=== PATIENT | male | born 1980 | race Caucasian/White ===

== ENCOUNTER 2017-09-04 02:13 | Emergency (ER) | payer SELFPAY ==
[2017-09-04 02:20] VITALS: BP 159/101; PULSE 115; RESP 18; TEMP 36.8; O2SAT 96; BMI 27.8
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
[2017-09-04 04:29] VITALS: BP 126/65; PULSE 84; RESP 18; TEMP 36.3; O2SAT 98
== END 2017-09-04 04:29 ==
PROVIDERS: Emergency Provider Emergency Medicine
DX: V89.2XXA Person injured in unspecified motor-vehicle accident, traffic, initial encounter (principal); Z00.8 Encounter for other general examination
CPT/HCPCS: 70450; 71045; 72125; 72170; 99283

== ENCOUNTER 2020-07-28 09:34 | Emergency (ER) | payer OTHER, SELFPAY ==
[2020-07-28 09:34] VITALS: BP 160/109; PULSE 85; RESP 16; TEMP 36.6; O2SAT 98; BMI 28.5
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
--- NOTE | 2020-07-28 09:50 | XR_ITS ---
PROCEDURE: XR HAND RT MIN 3V CLINICAL INDICATION: INJURY Posttraumatic pain COMPARISON: No exams were available for comparison FINDINGS: No fracture or dislocation. No lytic or blastic change. There is normal mineralization. There is a displaced longitudinal fracture involving the mid distal aspect of the 5th metacarpal. The distal aspect of the fracture does extend into the articular surface the metacarpal head along the ulnar aspect. The distal fracture fragment is displaced medially by approximately 5 mm. In addition there appears to be a nondisplaced fracture involving the waist of the scaphoid. Wrist films may confirm. IMPRESSION: 1. Mildly displaced fracture 5th metacarpal as described above. 2. Nondisplaced fracture waist of the scaphoid Dictated by: Amol Ram MD 07/28/2020 11:05 Amol Ram MD in [place] 07/28/2020 11:05
--- NOTE | 2020-07-28 11:32 | XR_ITS ---
PROCEDURE: XR WRIST RT MIN 3V CLINICAL INDICATION: wrist pain possible scaphoid fx COMPARISON: CR XR HAND RT MIN 3V from 07/28/2020 FINDINGS: There is a lucency at the waist of the scaphoid along with some sclerosis at this area suggesting an old scaphoid fracture. Please correlate as the patient's area of pain and tenderness. Mild displaced fracture involves the 5th metacarpal. Other findings:None. IMPRESSION: Lucency is present at the neck of the scaphoid consistent with a fracture possibly old. Please correlate with patient's area of pain and tenderness. Displaced 5th metacarpal fracture Dictated by: Amol Ram MD 07/28/2020 12:45 Amol Ram MD in [facility] 07/28/2020 12:45
--- NOTE | 2020-07-28 11:45 | PC.NURSE ---
RAD NOTIFIED OF XRAY
--- NOTE | 2020-07-28 12:52 | CT_ITS ---
PROCEDURE: CT WRIST RT WO CON CLINICAL HISTORY: PAIN Evaluate scaphoid fracture COMPARISON: No exams were available for comparison TECHNIQUE: Axial images obtained with sagittal and coronal reformats. All CT scans at the facility use one or more dose reduction, viz: automated exposure control, ma/kV adjustment per patient size (including targeted exams where dose is matched to indication, i.e. head), or iterative reconstruction technique. FINDINGS: There is a well-circumscribed fracture through the waist of the scaphoid with sclerotic margins consistent with an old fracture. There is mild anterior displacement of the distal fracture fragment by approximately 3-4 mm. No evidence of avascular necrosis. There is some fragmentation at the fracture site which appears chronic. Displaced fracture involves the 5th metacarpal. The distal fracture fragment is displaced laterally by 5 mm. There is mild prominence of the scapholunate space which may indicate ligamentous injury. IMPRESSION: 1. Old scaphoid fracture. 2. Acute displaced fracture of the 5th metacarpal. 3. Prominence of the scapholunate space which may be seen with ligamentous injury. Dictated by: Amol Ram MD 07/28/2020 14:06 Amol Ram MD in [facility] 07/28/2020 14:06
--- NOTE | 2020-07-28 14:15 | PC.NURSE ---
ULNAR GUTTER SPLINT APPLIED TO RT HAND
[2020-07-28 14:49] VITALS: BP 125/74; PULSE 78; RESP 18; TEMP 36.6; O2SAT 98
== END 2020-07-28 14:51 | disposition home or self-care (01) ==
PROVIDERS: Emergency Provider Emergency Medicine
DX: S62.306A Unspecified fracture of fifth metacarpal bone, right hand, initial encounter for closed fracture (principal); W01.0XXA Fall on same level from slipping, tripping and stumbling without subsequent striking against object, initial encounter; Y92.019 Unspecified place in single-family (private) house as the place of occurrence of the external cause
CPT/HCPCS: 29125; 73110; 73130; 73200; 99283

== ENCOUNTER → 2020-08-01 09:44 | Outpatient (CLI) | payer OTHER, SELFPAY ==
[2020-08-01 10:13] LABS: Basophils # 0.1 K/mm3 (0-0.2); Eosinophils # 0.3 K/mm3 (0.0-0.4); Eosinophils % 3.9 % (0.1-12.0); Hematocrit 49.8 % (42.0-52.0); Hemoglobin 16.9 g/dL (14.1-18.0); Lymphocytes % 31.9 % (10-50); Mean Corpuscular HGB Conc 33.9 g/dL (31.8-35.4); Mean Corpuscular Hemoglobin 29.6 pg (27.0-31.2); Mean Corpuscular Volume 87.4 fl (80-94); Mean Platelet Volume 6.9 fl (7.4-10.4); Monocytes # 0.4 K/mm3 (0.1-1.0); Monocytes % 5.9 % (1.7-9.3); Neutrophils # 3.7 K/mm3 (1.8-7.8); Neutrophils % 57.3 % (37.0-80.0); Platelet Count 248 K/mm3 (142-424); Red Cell Distribution Width 13.5 % (11.5-17.5); White Blood Count 6.4 K/mm3 (4.8-10.8)
[2020-08-01 11:54] LABS: Chloride 102 mmol/L (98-107); Potassium 4.4 mmoL/L (3.5-5.1); Sodium 137 mmol/L (136-145)
[2020-08-01 11:56] LABS: Alanine Aminotransferase 49 U/L (12-78); Aspartate Amino Transferase 47 U/L (17-59); Blood Urea Nitrogen 15 mg/dl (9-20); Estimated Glomerular Filt Rate 125 ml/min (>60); GFR (African American) 151 ML/MIN (>60)
[2020-08-01 11:57] LABS: Albumin Level 4.9 g/dl (3.5-5.0); Albumin/Globulin Ratio 1.8 (1.1-1.8); Alkaline Phosphatase 70 U/L (38-126); Anion Gap 12.4 mEq/L (5-15); Bilirubin,Total 0.6 mg/dl (0.2-1.3); Carbon Dioxide 27 mmol/L (22.0-30.0); Globulin 2.8 g/dL (1.3-3.2); Glucose 98 mg/dl (74-100); Total Protein,Serum 7.7 g/dl (6.3-8.2)
[2020-08-01 12:16] LABS: Coronavirus 19 IgG Antibody Negative (Negative); Coronavirus 19 IgM Antibody Negative (Negative)
== END ==
PROVIDERS: Visit Provider Orthopaedic Surgery
DX: Z01.812 Encounter for preprocedural laboratory examination (principal); Z11.52 Encounter for screening for COVID-19; S62.306A Unspecified fracture of fifth metacarpal bone, right hand, initial encounter for closed fracture; S62.021K Displaced fracture of middle third of navicular [scaphoid] bone of right wrist, subsequent encounter for fracture with nonunion
CPT/HCPCS: 36415; 80053; 85025; 86328

== ENCOUNTER 2020-08-03 07:13 | Day surgery (SDC) | payer OTHER, SELFPAY ==
[2020-07-31 14:15] VITALS: BMI 28.5
[2020-08-03] VITALS (21 sets, daily range): BP systolic 131–165; BP diastolic 75–121; PULSE 50–91; RESP 13–24; TEMP 36.2–36.6; O2SAT 89–98
--- NOTE | 2020-08-03 11:08 | XR_ITS ---
PROCEDURE: XR HAND RT 2V CLINICAL INDICATION: ORIF R Hand COMPARISON: CR XR HAND RT MIN 3V from 07/28/2020 FINDINGS: Fluoro time: 44 seconds. Multiple images are submitted during ORIF of the 5th metacarpal fracture with final images showing good alignment with [address] IMPRESSION: Good alignment status post ORIF 5th metacarpal fracture Dictated by: Amol Ram MD 08/03/2020 17:46 Amol Ram MD in [place] 08/03/2020 17:46
--- NOTE | 2020-08-03 11:26 | P.PN_ITS ---
[facility] Anesthesia Checklist - Patient Identification Patient Identification: Arm Band, Verbal (Name & ) - Structural Data Admitted From: Home Planned Operative Procedure/s: orif hand Consent for Planned Operative Procedure(s) Verified: Yes Verified Documents: History and Physical - NPO Status Verified Time NPO: 00:00 - Chart Verification Results Verified: CBC, BMP - Additional verifications Patient : No Anesthesia Reactions: No Hx Blood Transfusions: No Blood Transfusion Reaction: No Cephalosporin Allergy: No Previous Colonoscopy: No - Cardiovascular Assessment Heart Sounds: S1 & S2 Pulse Strength: Baseline Pulse Rhythm: Regular Peripheral Edema: No - Airway Assessment C-Spine Mobility Assessed: Yes TMJ Mobility Assessed: Yes Dentition: Good Dentition - Neurological Assessment Level of Consciousness: Awake, Alert, Appropriate Hx Seizures: No Numbness or tingling in extremities: No - Anesthesia Plan Anesthesia Risk discussed: Yes Anesthesia Plan: Verified ASA Class: I Anesthesia Type: General w/block [facility] History I have reviewed the patient's past medical history: Yes Medical History: Denies:: Cancer, Diabetes Mellitus Type 1, Diabetes Mellitus Type 2, Internal Pacemaker, MRSA, Seizures *Have you ever received a pneumonia vaccine?: No *Have you received a flu vaccine this season?: No Other Medical History: Denies: Blood Transfusion Reaction Anesthesia experience/problems:: none Laterality Cases: Left: Other Other Surgeries: No: Pacemaker Amputation: No Fractures: No - *Social History Last grade of school completed: Some college Smoking Status: Never smoker Alcohol Intake: current Alcohol Intake Frequency:: a few times a week Substance Use Type: marijuana *Occupational Status:: employed Housing: house Household Members: significant other, children *Travel in the last 8 weeks: None Family Hx:: Cancer, Diabetes
--- NOTE | 2020-08-03 11:27 | P.PN_ITS ---
[facility] Anesthesia Record Part I Intake, IV Amount: 1,150 Estimated blood loss (mL): 2 Urine output (mL): 0 Blood Products used (#): none Blood Pressure: 148/85 SaO2: 96 Pulse Rate: 86 Respiratory Rate: 20 Temperature: 97.9 F Patient is:: Awake, Stable Stable to PACU at:: 11:20
--- NOTE | 2020-08-03 12:45 | HMH.ANESII ---
[facility] Anesthesia Record Part II Discharge Time: 11:50 Destination: Surgical Day Care (OP Surgery) PACU nurse assessment reviewed?: Yes Patient Condition:: Good Anesthesia Complications:: None Swallowing reflex intact?: Yes Cyanosis?: No Blood Pressure: 150/85 Pulse Rate: 58 Temperature: 97.2 F Mental Status: Alert & Oriented Pain level:: 6 Nausea and/or vomitting:: None Intake, IV Amount: 30
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
--- NOTE | 2020-08-03 14:43 | SUR.PHASEI ---
1145: phone call order from Ketan Pisano CRNA with read back- Dilaudid 0.5mg IVP q5min for severe pain up to 2mg IVP total.
== END 2020-08-03 13:15 | disposition home or self-care (01) ==
LOC: OR 07:14
PROVIDERS: Visit Provider Orthopaedic Surgery
PROC: (CPT 26615; principal; 2020-08-03 09:00)
DX: S62.396A Other fracture of fifth metacarpal bone, right hand, initial encounter for closed fracture (principal); W01.0XXA Fall on same level from slipping, tripping and stumbling without subsequent striking against object, initial encounter
CPT/HCPCS: 26615; 73120; 76000; 96374; C1713; J0131

== ENCOUNTER → 2020-08-15 10:14 | Outpatient (CLI) | payer OTHER, SELFPAY ==
--- NOTE | 2020-08-15 10:19 | XR_ITS ---
PROCEDURE: XR HAND RT MIN 3V CLINICAL INDICATION: sp ORIF RT 5th mc Follow-up fracture/ COMPARISON: CR XR HAND RT MIN 3V from 07/28/2020 XA XR HAND RT 2V from 08/03/2020 FINDINGS: Three cortical screws have been placed within the distal aspect of the 5th metacarpal with good alignment of the fracture fragments. Fracture lines are less apparent The joint spaces are well-preserved. No significant degenerative/arthritic changes. No erosive changes evident. Other findings:None. IMPRESSION: Good alignment status post ORIF 5th metacarpal fracture Dictated by: Amol Ram MD 08/15/2020 16:01 Amol Ram MD in [facility] 08/15/2020 16:01
== END ==
PROVIDERS: Visit Provider Orthopaedic Surgery
DX: S62.306A Unspecified fracture of fifth metacarpal bone, right hand, initial encounter for closed fracture (principal); Z09 Encounter for follow-up examination after completed treatment for conditions other than malignant neoplasm
CPT/HCPCS: 73130

== ENCOUNTER → 2020-08-24 15:29 | Outpatient (CLI) | payer OTHER, SELFPAY ==
--- NOTE | 2020-08-24 15:35 | XR_ITS ---
PROCEDURE: XR HAND RT MIN 3V CLINICAL INDICATION: sp ORIF RT 5th mc, dos 08/03/20 Follow-up surgery COMPARISON: CR XR HAND RT MIN 3V from 07/28/2020 CR XR HAND RT MIN 3V from 08/15/2020 FINDINGS: Status post 5th metacarpal with 3 cortical screws present and good alignment of the fracture fragments. The joint spaces are well-preserved. No significant degenerative/arthritic changes. No erosive changes evident. Other findings:None. IMPRESSION: Good alignment status post ORIF distal aspect of 5th metacarpal Dictated by: Amol Ram MD 08/24/2020 16:37 Amol Ram MD in [facility] 08/24/2020 16:37
== END ==
PROVIDERS: Visit Provider Orthopaedic Surgery
DX: Z09 Encounter for follow-up examination after completed treatment for conditions other than malignant neoplasm (principal); S62.306A Unspecified fracture of fifth metacarpal bone, right hand, initial encounter for closed fracture; S62.021K Displaced fracture of middle third of navicular [scaphoid] bone of right wrist, subsequent encounter for fracture with nonunion
CPT/HCPCS: 73130